=== PATIENT | female | born 1960 | race Caucasian/White ===

== ENCOUNTER 2018-10-24 21:43 | Emergency (ER) | payer OTHER ==
[~2018-10-24] VITALS: Ht 157.5 cm; Wt 85.7 kg
== END 2018-10-25 00:25 | disposition home or self-care (01) ==
LOC: ER 21:43
DX: S30.0XXA Contusion of lower back and pelvis, initial encounter (principal); V49.9XXA Car occupant (driver) (passenger) injured in unspecified traffic accident, initial encounter; Y93.89 Activity, other specified; Y92.488 Other paved roadways as the place of occurrence of the external cause; Y99.8 Other external cause status

== ENCOUNTER 2020-03-03 14:32 | Emergency (ER) | payer OTHER ==
[~2020-03-03] VITALS: Ht 154.9 cm; Wt 81.6 kg
[2020-03-04] MEDS ORDERED: ORPHENADRINE C100 MG PO (13:06)
[2020-03-04] MEDS ORDERED: CELEBREX100 MG PO (13:06)
[2020-03-04] MEDS ORDERED: PEPCID AC20 MG PO (13:07)
[2020-03-04] MEDS ORDERED: AIRBORNE EFFER1 EACH PO (13:07)
== END 2020-03-04 14:08 | disposition home or self-care (01) ==
LOC: ER 14:32
DX: B34.9 Viral infection, unspecified (principal); M94.0 Chondrocostal junction syndrome [Tietze]; R51.9 Headache, unspecified; R53.1 Weakness; R53.81 Other malaise; Z03.818 Encounter for observation for suspected exposure to other biological agents ruled out
CPT/HCPCS: 70551

== ENCOUNTER 2020-03-06 14:36 | Emergency (ER) | payer OTHER ==
[~2020-03-06] VITALS: Ht 157.5 cm; Wt 81.2 kg
[~2020-03-06 14:36] MED LIST: AIRBORNE EFFER1 EACH PO; CELEBREX100 MG PO; ORPHENADRINE C100 MG PO; PEPCID AC20 MG PO
[2020-03-07] MEDS ORDERED: DECADRON6 MG PO (00:43)
[2020-03-07] MEDS ORDERED: LEVSIN/SL0.125 MG SL (00:43)
[2020-03-07] MEDS ORDERED: PEPCID AC20 MG PO (00:43)
[2020-03-07] MEDS ORDERED: ONDANSETRON ODT4 MG PO (00:43)
== END 2020-03-07 01:56 | disposition home or self-care (01) ==
LOC: ER 14:36
DX: R59.0 Localized enlarged lymph nodes (principal); C78.7 Secondary malignant neoplasm of liver and intrahepatic bile duct; B34.9 Viral infection, unspecified
CPT/HCPCS: 74177; 76700; Q9965

== ENCOUNTER 2020-03-24 20:02 | Inpatient (IN) | payer OTHER ==
[~2020-03-24] VITALS: Ht 157.5 cm; Wt 59.0 kg
[~2020-03-24 20:02] MED LIST changes: +DECADRON6 MG PO; +LEVSIN/SL0.125 MG SL; +ONDANSETRON ODT4 MG PO
[2020-03-24] MEDS ORDERED: NORFLEX100MG PO (20:13)
[2020-03-24] MEDS ORDERED: FAMOTIDINE20 MG PO (20:13)
[2020-03-24] MEDS ORDERED: HYOSCYAMINE0.125 M1 SL (20:13)
[2020-03-24] MEDS ORDERED: ONDANSETRON ODT4 MG PO (20:13)
[2020-03-27] MEDS ORDERED: FOLIVANE-PLUS1 EACH PO (17:19)
== END 2020-03-27 19:12 | DRG 375 ==
LOC: ER 20:02 → MEDI 03-25 08:06
PROVIDERS: ADMIT Internal Medicine; ATTEND Internal Medicine
PROC: 30233N1 Transfusion of Nonautologous Red Blood Cells into Peripheral Vein, Percutaneous Approach (ICD-10-PCS; principal; 2020-03-25)
PROC: 30233R1 Transfusion of Nonautologous Platelets into Peripheral Vein, Percutaneous Approach (ICD-10-PCS; 2020-03-25)
PROC: B246ZZZ Ultrasonography of Right and Left Heart (ICD-10-PCS; 2020-03-25)
PROC: BW21ZZZ Computerized Tomography (CT Scan) of Abdomen and Pelvis (ICD-10-PCS; 2020-03-25)
PROC: BB24Y0Z Computerized Tomography (CT Scan) of Bilateral Lungs using Other Contrast, Unenhanced and Enhanced (ICD-10-PCS; 2020-03-25)
PROC: 4A12X4Z Monitoring of Cardiac Electrical Activity, External Approach (ICD-10-PCS; 2020-03-25)
DX: C16.8 Malignant neoplasm of overlapping sites of stomach (principal); C77.2 Secondary and unspecified malignant neoplasm of intra-abdominal lymph nodes; C78.7 Secondary malignant neoplasm of liver and intrahepatic bile duct; Z20.828 Contact with and (suspected) exposure to other viral communicable diseases; D69.49 Other primary thrombocytopenia; D63.0 Anemia in neoplastic disease